=== PATIENT | male | born 1975 ===

== ENCOUNTER 2019-05-13 06:37 | Emergency (ER) | payer SELFPAY ==
[2019-05-13 07:13] LABS: Basophils % (Auto) 0.6 % (0.0-1.8); Eosinophils # (Auto) 0.1 K/mm3 (0.0-0.4); Eosinophils % (Auto) 1.7 % (0.0-4.3); Hematocrit 40.1 % (35.5-45.6); Hemoglobin 13.3 gm/dl (11.8-15.2); Lymphocytes # (Auto) 1.4 K/mm3 (1.2-5.4); Lymphocytes % (Auto) 23.6 % (13.4-35.0); Mean Corpuscular HGB Conc 33 % (32-34); Mean Corpuscular Volume 76 fl (84-94); Monocytes # (Auto) 0.4 K/mm3 (0.0-0.8); Monocytes % (Auto) 7.2 % (0.0-7.3); Platelet Count 196 K/mm3 (140-440); Red Blood Count 5.27 M/mm3 (3.65-5.03); Red Cell Distribution Width 14.5 % (13.2-15.2)
--- NOTE | 2019-05-13 07:14 | XRay Report ---
CHEST 1 VIEW INDICATION / CLINICAL INFORMATION: Chest Pain. COMPARISON: None available. FINDINGS: SUPPORT DEVICES: None. HEART / MEDIASTINUM: No significant abnormality. LUNGS / PLEURA: No significant pulmonary or pleural abnormality. No pneumothorax. ADDITIONAL FINDINGS: No significant additional findings. IMPRESSION: 1. No significant change Signer Name: Louie Galan MD Signed: 05/13/2019 7:10 AM Workstation Name: [id number]
[2019-05-13 07:34] LABS: BUN/Creatinine Ratio 16; Blood Urea Nitrogen 14 mg/dL (9-20); Calcium 9.2 mg/dL (8.4-10.2); Hemolysis Index 10
--- NOTE | 2019-05-13 08:06 | Emergency Department Report ---
ED Chest Pain HPI - General Chief Complaint: Chest Pain Stated Complaint: CHEST/BACK PAIN Time Seen by Provider: 05/13/19 07:59 Source: patient Mode of arrival: Ambulatory Limitations: No Limitations - History of Present Illness Initial Comments: 43-year-old male presents to the emergency department with complaint of some left-sided chest pain with radiation to the back started about 4 AM. It is associated with some shortness of breath and nausea without vomiting. He did not take anything for his symptoms prior to arrival today. No recent travel or sick contacts at home. He has a primary care physician through a local clinic. He denies any tobacco or illicit drug use. He has a past medical history of hypertension and high cholesterol. - Related Data Allergies Allergy/AdvReac Type Severity Reaction Status Date / Time No Known Allergies Allergy Unverified 05/13/19 06:39 Heart Score - HEART Score History: Moderately suspicious EKG: Normal Age: < 45 Risk factors: 1-2 risk factors Troponin: < normal limit HEART Score: 2 - Critical Actions Critical Actions: 0-3 pts:0.9-1.7%risk of adverse cardiac event.Candidate for discharge ED Review of Systems ROS: Stated complaint: CHEST/BACK PAIN Other details as noted in HPI Comment: All other systems reviewed and negative Constitutional: denies: chills, fever Eyes: denies: eye pain, vision change ENT: denies: ear pain, throat pain Respiratory: shortness of breath. denies: cough Cardiovascular: chest pain. denies: palpitations Gastrointestinal: nausea. denies: abdominal pain, vomiting Genitourinary: denies: dysuria, discharge Musculoskeletal: back pain. denies: arthralgia Skin: denies: rash, lesions Neurological: denies: headache, weakness ED Past Medical Hx - Past Medical History Previous Medical History?: Yes Hx Hypertension: Yes Additional medical history: High Cholesterol - Surgical History Past Surgical History?: No - Social History Smoking Status: Never Smoker ED Physical Exam - General Limitations: No Limitations - Other Other exam information: GENERAL: The patient is well-developed well-nourished. HENT: Normocephalic. Atraumatic. Patient has moist mucous membranes. EYES: Extraocular motions are intact. NECK: Supple. Trachea is midline. CHEST/LUNGS: Clear to auscultation. There is no respiratory distress noted. HEART/CARDIOVASCULAR: Regular. There is no tachycardia. There is no murmur. ABDOMEN: Abdomen is soft, nontender. Patient has normal bowel sounds. There is no abdominal distention. SKIN: Skin is warm and dry. NEURO: The patient is awake, alert, and oriented. The patient is cooperative. The patient has no focal neurologic deficits. The patient has normal speech. MUSCULOSKELETAL: There is no tenderness or deformity. There is no evidence of acute injury. ED Course Vital Signs 05/13/19 05/13/19 05/13/19 06:43 08:03 08:09 Temperature 98.1 F Pulse Rate 91 H 94 H 86 Respiratory 22 18 12 Rate Blood Pressure 140/75 Blood Pressure 140/86 [Right] O2 Sat by Pulse 98 100 Oximetry 05/13/19 05/13/19 05/13/19 08:10 08:15 08:30 Temperature Pulse Rate 86 82 78 Respiratory 23 22 Rate Blood Pressure 134/80 132/77 Blood Pressure [Right] O2 Sat by Pulse Oximetry 05/13/19 05/13/19 05/13/19 08:45 09:00 09:16 Temperature Pulse Rate 84 86 75 Respiratory 16 18 21 Rate Blood Pressure 120/73 120/73 120/73 Blood Pressure [Right] O2 Sat by Pulse Oximetry 05/13/19 05/13/19 05/13/19 09:56 10:00 10:15 Temperature Pulse Rate 83 83 79 Respiratory 17 14 19 Rate Blood Pressure 120/73 120/73 120/74 Blood Pressure [Right] O2 Sat by Pulse Oximetry 05/13/19 05/13/19 05/13/19 10:30 10:45 11:00 Temperature Pulse Rate 83 69 69 Respiratory 21 18 20 Rate Blood Pressure 126/76 115/67 114/71 Blood Pressure [Right] O2 Sat by Pulse Oximetry 05/13/19 05/13/19 11:15 11:30 Temperature Pulse Rate 77 66 Respiratory 17 17 Rate Blood Pressure 110/69 111/68 Blood Pressure [Right] O2 Sat by Pulse Oximetry ANJALI score - Anjali Score Age > 65: (0) No Aspirin use within the Past 7 Days: (0) No 3 or more CAD Risk Factors: (0) No 2 or more Angina events in past 24 hrs: (1) Yes Known CAD with more than 50% Stenosis: (0) No Elevated Cardiac Markers: (0) No ST Deviation Greater than 0.5mm: (0) No ANJALI Score: 1 ED Medical Decision Making - Lab Data Result diagrams: 05/13/19 07:05 05/13/19 07:05 - EKG Data -: EKG Interpreted by Me EKG shows normal: sinus rhythm, axis, intervals, QRS complexes, ST-T waves Rate: normal - EKG Data When compared to previous EKG there are: previous EKG unavailable Interpretation: normal EKG - Radiology Data Radiology results: image reviewed interpreted by me: Chest x-ray does not show any acute process. There are no pleural effusions, obvious pneumonia and there is no pneumothorax. - Medical Decision Making This patient presents with some left-sided chest pain with radiation towards his back. By the time of my examination, the patient just has back pain without any chest pain. EKG is normal without ST elevation MS, ischemia or dysrhythmia. Chest x-ray did not show any pleural effusions, pneumonia, pneumothorax, focal consolidation, or any other acute processes. His labs are unremarkable including negative troponins 2 and a negative d-dimer. He is low on the heart score criteria and has a low ANJALI score. For all of these reasons, the patient appears safe for discharge at this time. His information has been sent to [facility] for close outpatient follow-up within the next 48 hours. He has been instructed to follow-up with his primary care physician and return to the ER with any return or worsening of his symptoms, with any acute distress. - Differential Diagnosis MS, costochondritis, PE, GERD Critical Care Time: No Critical care attestation.: If time is entered above; I have spent that time in minutes in the direct care of this critically ill patient, excluding procedure time. ED Disposition Clinical Impression: Chest pain Qualifiers: Chest pain type: unspecified Qualified Code(s): R07.9 - Chest pain, unspecified Disposition: DC-01 TO HOME OR SELFCARE Is pt being admited?: No Condition: Stable Instructions: Chest Pain (ED) Additional Instructions: You will be contacted by the cardiology office for a outpatient appointment in the next 48 hours. Return to the emergency department with any return of your chest pain, worsening of your symptoms, or with any acute distress. [facility] - 2-3 Days Time of Disposition: 11:39 Print Language: YI
[2019-05-13] MEDS ORDERED: NORCO 5/325 PO ONE (08:33)
[2019-05-13] MEDS ORDERED: TORADOL IM ONE (08:33)
[2019-05-13 11:42] VITALS: BP 111/68
== END 2019-05-13 11:47 | disposition home or self-care (01) ==
LOC: ED 06:37
DX: R07.89 Other chest pain (principal); R06.02 Shortness of breath; R11.2 Nausea with vomiting, unspecified; F17.200 Nicotine dependence, unspecified, uncomplicated; I10 Essential (primary) hypertension
CPT/HCPCS: 36415; 71045; 80048; 84484; 85025; 85379; 93005; 93010; 96372; 99284; J1885

== ENCOUNTER 2022-07-01 05:25 | Emergency (ER) | payer SELFPAY ==
[2022-07-01 09:06] LABS: Basophils % (Auto) 0.2 % (0.0-1.8); Eosinophils % (Auto) 0.6 % (0.0-4.3); Hematocrit 39.5 % (35.5-45.6); Hemoglobin 12.5 gm/dl (11.8-15.2); Lymphocytes % (Auto) 16.5 % (13.4-35.0); Mean Corpuscular HGB Conc 32 % (32-34); Monocytes # (Auto) 0.4 K/mm3 (0.0-0.8); Monocytes % (Auto) 7.3 % (0.0-7.3); Platelet Count 236 K/mm3 (140-440); Red Blood Count 5.65 M/mm3 (3.65-5.03)
[2022-07-01 09:07] LABS: Bilirubin,Urine NEG (Negative); Blood,Urine NEG (Negative); Color,Urine Straw (Yellow); Protein,Urine <15 mg/dL mg/dL (Negative); Urobilinogen,Urine < 2 mg/dL (<2.0)
[2022-07-01 09:08] LABS: RBC,Urine < 1.0 /HPF (0.0-6.0); WBC,Urine < 1.0 /HPF (0.0-6.0)
[2022-07-01 09:09] LABS: Alanine Aminotransferase 15 units/L (7-56); BUN/Creatinine Ratio 18; Blood Urea Nitrogen 14 mg/dL (9-20); Calcium 9.7 mg/dL (8.4-10.2); Hemolysis Index 3
[2022-07-01 09:10] LABS: Mean Corpuscular Volume 70 fl (84-94)
--- NOTE | 2022-07-01 09:47 | Event Note ---
ED Screening Note Date of service: 07/01/22 Time: 09:46 ED Screening Note: Received call from surgeon Dr. Luli Bender requesting that the patient have labs and a CT abdomen ordered. States he plans on taking patient to the OR for cholelithiasis This initial assessment/diagnostic orders/clinical plan/treatment(s) is/are subject to change based on patients health status, clinical progression and re- assessment by fellow clinical providers in the ED. Further treatment and workup at subsequent clinical providers discretion. Patient/guardian urged not to elope from the ED as their condition may be serious if not clinically assessed and managed. Initial orders include: CT abdomen pelvis, labs already ordered
--- NOTE | 2022-07-01 12:26 | Emergency Department Report ---
ED Abdominal Pain HPI - General Chief Complaint: Abdominal Pain Stated Complaint: ABD PAIN Time Seen by Provider: 07/01/22 12:12 Source: patient, family Mode of arrival: Ambulatory Limitations: Language Barrier - History of Present Illness Initial Comments: 46-year-old male complains of left lower quadrant pain for 3 days patient was seen by surgeon few weeks ago and had gallbladder disease pending gallbladder surgery. Denies any fever chills or diarrhea. -: Gradual, days(s) Location: LLQ Radiation: L flank Migration to: no migration Severity scale (0 -10): 5 Quality: cramping Consistency: intermittent Improves With: nothing Worsens With: nothing Associated Symptoms: denies other symptoms - Related Data Allergies Allergy/AdvReac Type Severity Reaction Status Date / Time No Known Allergies Allergy Unverified 05/13/19 06:39 ED Review of Systems ROS: Stated complaint: ABD PAIN Other details as noted in HPI Constitutional: denies: chills, fever Eyes: denies: eye pain, eye discharge, vision change ENT: denies: ear pain, throat pain Respiratory: denies: cough, shortness of breath, wheezing Cardiovascular: denies: chest pain, palpitations Gastrointestinal: abdominal pain Genitourinary: denies: urgency, dysuria Neurological: denies: headache, weakness, paresthesias Psychiatric: denies: anxiety, depression Hematological/Lymphatic: denies: easy bleeding, easy bruising ED Past Medical Hx - Past Medical History Previous Medical History?: Yes Hx Hypertension: Yes Additional medical history: High Cholesterol - Surgical History Past Surgical History?: No - Social History Smoking Status: Never Smoker ED Physical Exam - General Limitations: Language Barrier General appearance: alert, in no apparent distress - Head Head exam: Present: atraumatic, normocephalic - Eye Eye exam: Present: normal appearance, PERRL Pupils: Present: normal accommodation - ENT ENT exam: Present: normal exam, normal orophraynx - Neck Neck exam: Present: normal inspection - Respiratory Respiratory exam: Present: normal lung sounds bilaterally. Absent: respiratory distress, wheezes - Cardiovascular Cardiovascular Exam: Present: regular rate, normal rhythm. Absent: systolic murmur, diastolic murmur, rubs, gallop - GI/Abdominal GI/Abdominal exam: Present: soft. Absent: distended, tenderness - Extremities Exam Extremities exam: Present: normal inspection, full ROM ED Course Vital Signs 07/01/22 07/01/22 05:29 14:46 Temperature 98.6 F Pulse Rate 78 61 Respiratory 18 18 Rate Blood Pressure 155/85 Blood Pressure 121/63 [Right] O2 Sat by Pulse 99 99 Oximetry ED Medical Decision Making - Lab Data Result diagrams: 07/01/22 08:18 07/01/22 08:18 Critical care attestation.: If time is entered above; I have spent that time in minutes in the direct care of this critically ill patient, excluding procedure time. ED Disposition Clinical Impression: Back pain Disposition: 01 HOME / SELF CARE / HOMELESS Is pt being admited?: No Does the pt Need Aspirin: No Condition: Stable Instructions: Radicular Pain Referrals: ELBERT GARCIA MD [Primary Care Provider] - 3-5 Days Print Language: GUYANESE
[2022-07-01 14:55] VITALS: BP 121/63
--- NOTE | 2022-07-01 15:04 | Cat Scan Report ---
CT ABDOMEN AND PELVIS WITH CONTRAST INDICATION / CLINICAL INFORMATION: Left upper quadrant and right lower quadrant pain. TECHNIQUE: Axial CT images were obtained through the abdomen and pelvis after 95 cc Omnipaque [address] scans at this location are performed using CT dose reduction for ALARA by means of automated e xposure control. COMPARISON: None available. FINDINGS: LOWER CHEST: No significant abnormality. LIVER: No significant abnormality. GALLBLADDER: There is cholelithiasis without evidence of acute cholecystitis. BILE DUCTS: No significant abnormality. PANCREAS: No significant abnormality. SPLEEN: No significant abnormality. ADRENALS: No significant abnormality. RIGHT KIDNEY/URETER: No significant abnormality. LEFT KIDNEY/URETER: No significant abnormality. STOMACH/SMALL BOWEL: No significant abnormality. COLON: No significant abnormality. APPENDIX: No significant abnormality. PERITONEUM: No free fluid. No free air. No fluid collection. LYMPH NODES: No significant adenopathy. VASCULATURE: No significant abnormality. URINARY BLADDER: No significant abnormality. REPRODUCTIVE ORGANS: No significant abnormality. ADDITIONAL FINDINGS: None. BONES: No significant abnormality IMPRESSION: 1. No significant abnormality to explain the patient's pain. Signer Name: Froylan Lopez MD Signed: 07/01/2022 3:00 PM Workstation Name: [id number]
--- NOTE | 2022-07-01 15:45 | Progress Note ---
Subjective Date of service: 07/01/22 Narrative: the pt was seen in my clinic for gallbladder polyp that is asymptomatic, I recommended repeat imaging and surgery. he came to ED today to do imaging, and CT scan showed stable size gallstone that is asymptomatic. I recommended no surgery for now so will keep follow up with clinic PRN if he develops symptoms I will schedule surgery. Objective Vital Signs - 12hr 07/01/22 07/01/22 05:29 14:46 Temperature 98.6 F Pulse Rate 78 61 Respiratory 18 18 Rate Blood Pressure 155/85 Blood Pressure 121/63 [Right] O2 Sat by Pulse 99 99 Oximetry - Labs 07/01/22 08:18 07/01/22 08:18 Diabetes panel 07/01/22 Range/Units 08:18 Sodium 141 (137-145) mmol/L Potassium 4.2 (3.6-5.0) mmol/L Chloride 102.4 (98-107) mmol/L Carbon Dioxide 27 (22-30) mmol/L BUN 14 (9-20) mg/dL Creatinine 0.8 (0.8-1.3) mg/dL Glucose 102 H (75-100) mg/dL Calcium 9.7 (8.4-10.2) mg/dL AST 16 (5-40) units/L ALT 15 (7-56) units/L Alkaline Phosphatase 104 (35-129) units/L Total Protein 7.5 (6.3-8.2) g/dL Albumin 5.0 (3.9-5) g/dL Calcium panel 07/01/22 Range/Units 08:18 Calcium 9.7 (8.4-10.2) mg/dL Albumin 5.0 (3.9-5) g/dL Pituitary panel 07/01/22 Range/Units 08:18 Sodium 141 (137-145) mmol/L Potassium 4.2 (3.6-5.0) mmol/L Chloride 102.4 (98-107) mmol/L Carbon Dioxide 27 (22-30) mmol/L BUN 14 (9-20) mg/dL Creatinine 0.8 (0.8-1.3) mg/dL Glucose 102 H (75-100) mg/dL Calcium 9.7 (8.4-10.2) mg/dL Adrenal panel 07/01/22 Range/Units 08:18 Sodium 141 (137-145) mmol/L Potassium 4.2 (3.6-5.0) mmol/L Chloride 102.4 (98-107) mmol/L Carbon Dioxide 27 (22-30) mmol/L BUN 14 (9-20) mg/dL Creatinine 0.8 (0.8-1.3) mg/dL Glucose 102 H (75-100) mg/dL Calcium 9.7 (8.4-10.2) mg/dL Total Bilirubin 0.50 (0.1-1.2) mg/dL AST 16 (5-40) units/L ALT 15 (7-56) units/L Alkaline Phosphatase 104 (35-129) units/L Total Protein 7.5 (6.3-8.2) g/dL Albumin 5.0 (3.9-5) g/dL
== END 2022-07-01 17:59 | disposition home or self-care (01) ==
LOC: ED 05:25
DX: M54.9 Dorsalgia, unspecified (principal); I10 Essential (primary) hypertension
CPT/HCPCS: 36415; 74177; 80053; 81001; 83690; 85025; 99284; Q9967